=== PATIENT | female | born 1970 | race Caucasian/White ===

== ENCOUNTER 2020-02-16 22:05 | Inpatient (IN) | payer MEDICAID ==
[~2020-02-16] VITALS: Ht 149.9 cm; Wt 68.9 kg
[~2020-02-16 22:05] MED LIST: CIPR500T4 PO; PRED10TA5 PO; TRAM50TA1 PO
[2020-02-16 22:10] VITALS: BP 114/55
--- NOTE | 2020-02-16 22:20 | NUR ---
49 y/o female biba c/o rt hip pain x 40mis ago s/p fall. pt says her side rail was down and fell off her bed. lives at home. cms intact. +2 pedal pulses. limited motor function. sensation intact. cap refill < 3. vss. a&ox4. obvious deformity noted on rt lower extrem. rt leg is abducted and longer in length compared to left leg. pt was given 150mcg of fentanyl on route. rates pain 7/10 and describes it as sharp. nka. pmh: arthiritis, asthma.
--- NOTE | 2020-02-16 22:45 | NUR ---
pt denies being and signed the wavier form for xr.
--- NOTE | 2020-02-16 22:48 | NUR ---
xr at bedside.
[2020-02-16] MEDS ORDERED: MORPHINE SULFATE 4 MG/ML SYR IVP ONE (22:50)
[2020-02-16 23:13] LABS: BASOPHILS # (AUTO) 0.1 K/uL (0.00-0.22); EOSINOPHILS # (AUTO) 0.3 K/uL (0-0.4); MONOCYTES # (AUTO) 0.5 K/uL (0.8-1.0); NEUTROPHILS # (AUTO) 3.1 K/uL (1.8-7.7); RED BLOOD CELL COUNT(AUTO) 2.98 MIL/uL (4.20-5.40)
--- NOTE | 2020-02-16 23:16 | NUR ---
EKG PERFORMED AT BEDSIDE
--- NOTE | 2020-02-16 23:25 | NUR ---
sisters contact info (shaina): [phone]
[2020-02-16 23:27] LABS: EOSINOPHILS % (AUTO) 5.8 % (0.0-4.0); LYMPHOCYTES % (AUTO) 33.1 % (20.5-51.1); MEAN CORPUSCULAR HEMOGLOBIN 25 pg (27-31); MEAN CORPUSCULAR HGB CONC 31 g/dL (33-37); MEAN CORPUSCULAR VOLUME 80.4 fL (80-94); MONOCYTES % (AUTO) 8.1 % (1.7-9.3); RED CELL DISTRIBUTION WIDTH 19.6 % (11.6-13.7)
[2020-02-16 23:32] LABS: ALBUMIN 2.7 g/dL (3.4-5.0); CARBON DIOXIDE 25.6 mmol/L (21-32); CREATININE 1.2 mg/dL (0.6-1.3); POTASSIUM 3.6 mmol/L (3.5-5.1); TOTAL BILIRUBIN 0.2 mg/dL (0.0-1.0)
[2020-02-16 23:36] LABS: HEMOGLOBIN 7.5 g/dL (12.0-16.0); PLATELET COUNT (AUTO) 763 K/uL (140-450)
--- NOTE | 2020-02-16 23:45 | NUR ---
reeval pt pain level. rates pain 6/10. pain level decreased.
[2020-02-17] MEDS ORDERED: MORPHINE SULFATE 4 MG/ML SYR IVP ONE (00:30)
[2020-02-17] MEDS ORDERED: ONDANSETRON 4 MG/2 ML VIAL IVP ONE (00:30)
--- NOTE | 2020-02-17 00:36 | NUR ---
COVERING PRIMARY RN FOR LUNCH RELIEF, PT C/O PAIN-- WILL MEDICATE ORDERED.
--- NOTE | 2020-02-17 00:37 | NUR ---
MEDICATED ORDERED FOR PAIN AND NAUSEA.
[2020-02-17] MEDS ORDERED: ACETAMINOPHEN 325 MG TAB PO PRN (00:50)
[2020-02-17] MEDS ORDERED: ONDANSETRON 4 MG/2 ML VIAL IVP PRN (00:50)
--- NOTE | 2020-02-17 00:51 | NUR ---
REPORTS RELIEF OF PAIN, RATES PAIN AT 2/10 POST MORPHINE ADMIN.
--- NOTE | 2020-02-17 00:57 | NUR ---
DR. NAVARRETE AT BEDSIDE FOR ADMISSION ASSESSMENT.
--- NOTE | 2020-02-17 01:02 | NUR ---
REPORT RETURNED TO PRIMARY RN: MACEY.
--- NOTE | 2020-02-17 01:30 | NUR ---
ADMITTED 49 Y/O FEMALE. AAOX4. NO SOB. S/P FALL. NKA. FULL CODE. UNDER DR. VIVEROS. INITIAL ASSESSMENT DONE. V/S TAKEN. NOTED LAC 20G. INTACT. SKIN IS INTACT. NOTED R HIP PAIN WHEN MOVING, TOLERABLE. MRSA SWAB DONE. KEPT CLEAN, DRY AND COMFORTABLE. FALL RISK PROTOCOL IN PLACE. CALL LIGHT WITHIN REACH. WILL CONTINUE TO MONITOR.
--- NOTE | 2020-02-17 01:30 | NUR ---
Patient will be admitted to care of DR. VIVEROS. Admited to M/S. Will go to room 104B. Belongings list completed. Report to PIPER SAWYER.
[2020-02-17] MEDS: HYDROcodone/APAP 7.5/325 MG 1 TAB PO PRN ×2 (03:33→09:09)
--- NOTE | 2020-02-17 03:33 | NUR ---
PATIENT C/O R HIP PAIN 01/21. REPOSITIONED. NORCO GIVE ORDERED.
[2020-02-17 04:00] VITALS: BP 111/61
[2020-02-17] MEDS: MORPHINE SULFATE 2 MG/ML SYR IVP PRN ×3 (05:30→17:58)
--- NOTE | 2020-02-17 05:30 | NUR ---
PATIENT C/O R HIP PAIN 03/23. REPOSITIONED. MORPHINE IVP GIVEN ORDERED.
--- NOTE | 2020-02-17 06:30 | NUR ---
PATIENT DENIES PAIN AND IS RESTING.
[2020-02-17 06:38] LABS: BASOPHILS % (AUTO) 0.4 % (0.0-2.0); EOSINOPHILS # (AUTO) 0.4 K/uL (0-0.4); EOSINOPHILS % (AUTO) 6.2 % (0.0-4.0); HEMATOCRIT 23.6 % (36-48); HEMOGLOBIN 7.6 g/dL (12.0-16.0); LYMPHOCYTES # (AUTO) 2.2 K/uL (2.5-16.5); LYMPHOCYTES % (AUTO) 34.6 % (20.5-51.1); MEAN CORPUSCULAR HEMOGLOBIN 26 pg (27-31); MEAN CORPUSCULAR HGB CONC 32 g/dL (33-37); MEAN CORPUSCULAR VOLUME 80.2 fL (80-94); MONOCYTES # (AUTO) 0.5 K/uL (0.8-1.0); MONOCYTES % (AUTO) 8.1 % (1.7-9.3); NEUTROPHILS # (AUTO) 3.3 K/uL (1.8-7.7); NEUTROPHILS % (AUTO) 50.7 % (42.2-75.2); PLATELET COUNT (AUTO) 758 K/uL (140-450); RED BLOOD CELL COUNT(AUTO) 2.94 MIL/uL (4.20-5.40); RED CELL DISTRIBUTION WIDTH 19.3 % (11.6-13.7); WHITE BLOOD COUNT (AUTO) 6.5 K/uL (4.8-10.8)
[2020-02-17 06:53] LABS: ANION GAP 16.3 (8-16); CARBON DIOXIDE 24.3 mmol/L (21-32); CREATININE 1.1 mg/dL (0.6-1.3); POTASSIUM 3.6 mmol/L (3.5-5.1)
[2020-02-17 06:54] LABS: MAGNESIUM 2.2 mg/dL (1.8-2.4); PHOSPHORUS 3.8 mg/dL (2.5-4.9); THYROID STIMULATING HORMONE 5.06 uIU/mL (0.34-3.74)
[2020-02-17 07:28] LABS: PROTHROMBIN TIME 9.8 secs (10.8-13.4)
--- NOTE | 2020-02-17 07:30 | NUR ---
PATIENT IS NOT IN ANY DISTRESS. ENDORSED TO AM SHIFT RN FOR CONTINUITY OF CARE.
--- NOTE | 2020-02-17 07:31 | NUR ---
RECEIVED REPORT FROM SMALL BRAKE FORM OPERATOR NURSE DIGNA-RN. PT RESTING IN BED, AOX4-MOROCCAN SPEAKING, ON ROOM AIR WITH LEFT AC #20G/SL. NON-AMBULATORY. DISCUSSED PLAN OF CARE AND PT VERBALIZED UNDERSTANDING. CALL LIGHT WITHIN REACH. NO S/S OF RESPIRATORY DISTRESS OR DISCOMFORT NOTED AT THIS TIME. WILL CONTINUE TO MONITOR.
[2020-02-17 08:00] VITALS: BP 116/68
[2020-02-17] MEDS: DOCUSATE SODIUM 100 MG GELCAP PO SCH ×2 (09:04→21:36)
--- NOTE | 2020-02-17 09:09 | NUR ---
SPOKE WITH DR. RUANO AND WAS TOLD SHE DOES NOT HAVE ANY FRACTURES. SCHEDULED MEDICATIONS GIVEN AND TOLERATED WELL. PT C/O PAIN 01/21 AND MEDICATED WITH NORCO. PT TOLERATED WELL. CALL LIGHT WITHIN REACH. NO S/S OF RESPIRATORY DISTRESS OR DISCOMFORT NOTED AT THIS TIME. WILL CONTINUE TO MONITOR.
--- NOTE | 2020-02-17 09:38 | NUR ---
PATIENT HAS BEEN SCREENED AND CATEGORIZED HIGH NUTRITION RISK. PATIENT WILL BE SEEN WITHIN 1-2 DAYS OF ADMISSION. 02/17/20-02/18/[address]
--- NOTE | 2020-02-17 11:00 | NUR ---
ASSISTED PT TO USE BEDPAN. PT TOLERATED WELL. CALL LIGHT WITHIN REACH. NO S/S OF RESPIRATORY DISTRESS OF DISCOMFORT NOTED AT THIS TIME. WILL CONTINUE TO MONITOR.
--- NOTE | 2020-02-17 11:42 | NUR ---
PT C/O PAIN 05/23 AND MEDICATED WITH MORPHINE. PT TOLERATED WELL. PLEASE SEE ATTACHED Addendum: 02/17/20 at 1815 by Rachelle Khan RN CALL LIGHT WITHIN REACH. NO S/S OF RESPIRATORY DISTRESS OR DISCOMFORT NOTED AT THIS TIME. WILL CONTINUE TO MONITOR.
--- NOTE | 2020-02-17 12:04 | NUR ---
GARDEN MACHINERY MECHANIC NOTE: Patient's Orientation Person Situation Place Time Information Provided By PATIENT Comments SW MET PATIENT AT BEDSIDE. Medicine Assistant, Realtionship and Phone Number LUZ VAZQUEZ SISTER [phone] Healthcare Power of Direct Mail Clerk No Does Patient Have a POLST No Identifying Problems No Social Work Triggers Is A Social Work Consult Needed No Mandate Report Filed No Explanation Of Identifying Problems PATIENT IS A 49-YEAR-OLD FEMALE ADMITTED FOR FALL AND POSSIBLE HIP FRACTURE. PATIENT HAS PMHX OF RHEUMATOID ARTHRITIS AND OSTEOPOROSIS. Admitted From Home Pre-Admission Level Of Functioning Status Independent With DME Prior Resources/Services Used In Last 12 Months No Prior Resources Used Prior DME Walker Living Situation Lives With Family House Patient Had Caregiver No Home Support No Caregiver Issues Financial Issues No Known Financial Issue Factors/Needs No D/C Needs Identified Pt/Rep Participated In Discharge Plan Yes Patient/Family Agress With Discharge Plan Yes Discharge Plan Comments TENTATIVE DISCHARGE PLAN IS FOR PATIENT TO RETURN HOME. DC Plan Status Initiated
--- NOTE | 2020-02-17 13:00 | NUR ---
ASSISTED PT TO USE BEDPAN AND PT TOLERATED WELL. CALL LIGHT WITHIN REACH. NO S/S OF RESPIRATORY DISTRESS OF DISCOMFORT NOTED AT THIS TIME. WILL CONTINUE TO MONITOR.
[2020-02-17] MEDS: SODIUM FERRIC GLUCONATE 125 MG in NACL 0.9% 100 ML IV SCH (14:23)
--- NOTE | 2020-02-17 14:23 | NUR ---
SCHEDULED MEDICATION FERRLICIT GIVEN AND TOLERATED WELL. CALL LIGHT WITHIN REACH. NO S/S OF RESPIRATORY DISTRESS OR DISCOMFORT NOTED AT THIS TIME. WILL CONTINUE TO MONITOR.
[2020-02-17] MEDS: KETOROLAC 15 MG/ML VIAL IVP PRN ×2 (15:27→21:37)
--- NOTE | 2020-02-17 15:27 | NUR ---
PT C/O PAIN 05/23 AND MEDICATED WITH TORADOL AND TOLERATED WELL. CALL LIGHT WITHIN REACH. NO S/S OF RESPIRATORY DISTRESS OR DISCOMFORT NOTED AT THIS TIME. WILL CONTINUE TO MONITOR.
--- NOTE | 2020-02-17 17:58 | NUR ---
PT C/O PAIN 05/23 AND MEDICATED WITH MORPHINE. PT TOLERATED WELL. CALL LIGHT WITHIN REACH. NO S/S OF RESPIRATORY DISTRESS OR DISCOMFORT NOTED AT THIS TIME. WILL CONTINUE TO MONITOR.
--- NOTE | 2020-02-17 19:28 | NUR ---
RECEIVED REPORT FROM DAYSNMFT NURSE, FOR CONTINUITY OF CARE. AA&OX4; TAMAZIGHT SPEAKING. RESPIRATIONS ARE EVEN AND UNLABORED, BREATHING TO ROOM AIR. LAC 20G IV, IS PATENT AND INTACT; SALINE LOCK. PT IS S/P FALL, NON-AMBULATORY. INCONTINENT; BEDPAN. REVIEWED PLAN OF CARE. SAFETY MEASURES IN PLACE; CALL LIGHT WITHIN REACH, BED IN LOW POSITION. NO ACUTE DISTRESS NOTED. WILL CONTINUE TO MONITOR.
--- NOTE | 2020-02-17 19:30 | NUR ---
ENDORSED TO CHEMISTRY TEACHER NURSE ROBY. PT IN STABLE CONDITION AT THIS TIME.
--- NOTE | 2020-02-17 21:37 | NUR ---
SCHEDULED MEDICATIONS GIVEN, WITH MEDICATION EDUCATION PROVIDED. PT TOLERATED PO MED WELL. PT COMPLAINS OF RT SIDED HIP PAIN, IVP TORADOL ADMINISTERED. WILL REASSESS PAIN. SAFETY MEASURES IN PLACE. NO DISTRESS NOTED. WILL CONTINUE TO MONITOR.
--- NOTE | 2020-02-17 23:00 | NUR ---
RECEIVED PT AWAKE, AAOX4. VITAL SIGNS STABLE, TOLERABLE PAIN AT THIS TIME, ENCOURAGE TO CALL WHEN PAIN GET WORST, ON FALL PRECAUTION, CALL LIGHT WITHIN REACH.
[2020-02-18] VITALS: BP 115/66
[2020-02-18] MEDS: MORPHINE SULFATE 2 MG/ML SYR IVP PRN ×3 (01:36→14:23)
--- NOTE | 2020-02-18 01:36 | NUR ---
PT COMPLAINING OF RT HIP AND RT RIB PAIN, MEDICATED PRN WITH MORPHINE IVP, MONITORED CLOSELY.
--- NOTE | 2020-02-18 04:30 | NUR ---
SEEN PT SLEEPING, NO SIGNS OF DISTRESS, MONITORED CLOSELY.
--- NOTE | 2020-02-18 07:10 | NUR ---
RECEIVED PATIENT FROM NIGHT CHARGE NURSE. PATIENT IS SLEEPING COMFORTABLY IN BED. RESP EVEN AND UNLABORED ON ROOM AIR. LAC 20 SL NOTED. BED IN LOW POSITION, CALL LIGHT WITHIN REACH. WILL CONTINUE WITH CARE.
--- NOTE | 2020-02-18 07:10 | NUR ---
PT SLEEPING, NO SIGNS OF DISTRESS, REPORT GIVEN TO PIPER ISLAS FOR CONTINUITY OF CARE.
[2020-02-18 07:21] LABS: CHOL/HDL RATIO 2.5 (1-4.5)
[2020-02-18 08:00] VITALS: BP 104/62
[2020-02-18 08:10] LABS: FOLIC ACID 5.2 ng/mL (>3.0)
[2020-02-18] MEDS: DOCUSATE SODIUM 100 MG GELCAP PO SCH (09:02)
--- NOTE | 2020-02-18 09:10 | NUR ---
MORNING ROUTINE MEDICATIONS GIVEN. PATIENT TOLERATED WELL. MORPHINE GIVEN PER REQUESTED FOR RIGHT HIP PAIN. VITALS 98.2 89 16 104/62 100% ON ROOM AIR. PT AT BEDSIDE FOR EVALUATION OF DME FOR HOME USE. PATIENT TEACHING ON FALL PRECAUTION AND SAFETY. PATIENT VERBALIZED UNDERSTANDING. CALL LIGHT WITHIN REACH. WILL CONTINUE TO MONITOR.
[2020-02-18 10:59] VITALS: BP 104/62
--- NOTE | 2020-02-18 11:00 | NUR ---
RECEIVED ORDER TO DISCHARGE PATIENT. PATIENT WILL BE GOING HOME WITH FAMILY IN HER OWN PRIVATE VEHICLE. PENDING PT EVAL FOR EQUIPMENT TO USE AT HOME. WILL CONTINUE TO MONITOR.
[2020-02-18] MEDS: SODIUM FERRIC GLUCONATE 125 MG in NACL 0.9% 100 ML IV SCH (14:22)
--- NOTE | 2020-02-18 14:35 | NUR ---
MORPHINE GIVEN REQUESTED FOR PAIN 02/20. 112/64 HR 82. FERRLECIT ADMINISTERED IVPB. CALL LIGHT WITHIN REACH. WILL CONTINUE TO MONITOR.
--- NOTE | 2020-02-18 14:42 | NUR ---
RECEIVED ORDER FOR A WALKER. PATIENT STATED SHE ALREADY HAS 2 WALKERS AT HOME AND SHE NEEDS A CANE TO HELP HER GET TO THE RESTROOM. SS CALLED AND A CANE WILL BE DELIVERED TO PATIENT'S HOME. PATIENT VERBALIZED UNDERSTANDING.
--- NOTE | 2020-02-18 14:43 | NUR ---
DISCHARGE PLANNING: RECEIVED A CALL FROM PRIMARY RN JANEL, TELLING ME THAT THE PATIENT HAS WALKERS AT HOME AND IS REQUESTING A CANE. DR. REMY MADE AWARE. Addendum: 02/18/20 at 1453 by Audra Shine CM CANE PROVIDED TO THE PATIENT AND WAS APPRECIATIVE.
[2020-02-18] MEDS ORDERED: DICL1GEL19 TP (15:58)
[2020-02-18 16:00] VITALS: BP 115/53
--- NOTE | 2020-02-18 17:09 | NUR ---
PATIENT WAS ASSISTED IN THE DISCHARGING PROCESS. VITALS 98.9 118 20 115/[address] WRIGHT MADE AWARE. PATIENT IS WAITING FOR FAMILY TO PICK HER UP. NO NOTED DISTRESS. RESP EVEN AND UNLABORED ON RA. WILL CONTINUE TO MONITOR.
--- NOTE | 2020-02-18 17:50 | NUR ---
PATIENT LEFT VIA WHEELCHAIR TO HOME WITH HER NEPHEW. PATIENT LEFT IN STABLE CONDITION.
== END 2020-02-18 17:50 | disposition home or self-care (01) | DRG 351 ==
LOC: MED 22:05 → MTU 02-17 00:51
PROVIDERS: ADMIT General Practice; ATTEND General Practice
DX: M81.0 Age-related osteoporosis without current pathological fracture (principal); E43 Unspecified severe protein-calorie malnutrition; D47.3 Essential (hemorrhagic) thrombocythemia; D50.9 Iron deficiency anemia, unspecified; D64.9 Anemia, unspecified; M06.9 Rheumatoid arthritis, unspecified; Z68.30 Body mass index [BMI] 30.0-30.9, adult; J45.909 Unspecified asthma, uncomplicated; Z83.3 Family history of diabetes mellitus; Z82.3 Family history of stroke; Z82.49 Family history of ischemic heart disease and other diseases of the circulatory system; R32 Unspecified urinary incontinence; W01.0XXA Fall on same level from slipping, tripping and stumbling without subsequent striking against object, initial encounter; Y93.89 Activity, other specified; Y92.89 Other specified places as the place of occurrence of the external cause; Y99.8 Other external cause status
CPT/HCPCS: 36415; 71045; 71250; 73502; 73560; 73700; 80048; 80053; 82607; 82728; 82746; 83036; 83540; 83735; 83880; 84100; 84443; 85025; 85045; 85610; 85730; 87081; 93005; 96374; 96376; 97112; 97116; 97161-GP; 99285; J1644; J1885; J2270; J2405; J2916; Q0092